=== PATIENT | male | born 1985 | race Caucasian/White ===

== ENCOUNTER 2025-02-18 16:00 | Emergency (ER) | payer OTHER, BC, SELFPAY ==
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
[2025-02-18 16:10] VITALS: BP 120/76; PULSE 56; RESP 14; TEMP 36.5; O2SAT 97
--- OUTSIDE RECORDS SUMMARY | 2025-02-18 16:10 | XMS_ITS | Clinical Summary ---
Author Organization [facility] Address [address] [place] [address] Phone Care Team Providers Care Stevedoring Supervisor Name Role Phone Vaishnavi Hernandez MD Primary Care Provider Allergies Active Allergy Reactions Criticality Noted Date Comments Morphine Itching 07/08/2017 Medications HYDROcodone-acet aminophen (NORCO) 5-325 MG Tablet Take 1 Tab by mouth every 4 hours as needed for Pain. 20 Tab 07/08/2017 Active Social History Tobacco Use Types Packs/Day Years Used Date Smoking Tobacco: Never Smokeless Tobacco: Never Alcohol Use Standard Drinks/Week Comments No 0 (1 standard drink = 0.6 oz pur e alcohol) Sex and Gender Information Value Date Recorded Sex Assigned at Not on file Legal Sex Male 9:05 PM CDT Gender Identity Not on file Sexual Orientation Not on file Last Filed Vital Signs Vital Sign Reading Time Taken Comments Blood Pressure 140/88 07/16/2017 4:19 PM COMMUNITY HEALTH ADVOCATE Pulse 78 07/16/2017 4:19 PM COMMUNITY HE[facility] ADV[facility]ATE Temperature 36.3 C (97.3 F) 07/16/2017 4:19 PM COMMUNITY HEALTH ADV[facility]ATE Respiratory Rate 16 07/16/2017 4:19 PM [facility] HE[facility] Oxygen Saturation 100% 07/16/2017 4:19 PM COMM[facility]ITY HE[facility] AD[facility]ATE Inhaled Oxygen Concentration - - Weight 86.2 kg (190 lb) 07/16/2017 4:19 PM [facility]ITY HE[facility] AD[facility] Height 172.7 cm (5' 8) 07/16/2017 4:19 PM COMMUNITY HEALTH ADV[facility]ATE Body Mass Index 28.89 07/16/2017 4:19 PM [facility] Plan of Treatment Health Maintenance Due Date Last Done Comments Hepatitis C Virus (HCV) Screening 1985 TdaP Immunization 1985 Hepatitis B Immunization (1 of 3 - 19+ 3-dose series) 2004 Human Papillomavirus (HPV) Immunization (1 - 3-dose SCDM series) 2012 SARS-COV-2 Immunization (1 - 2023-25 season) 2024 Influenza Immunization (#1) 2025 Respiratory Syncytial Virus (RSV) Immunization (Adult) (1 - 1-dose 75+ series) 2060 Meningococcal Immunization (ACWY) Aged Out No longer eligible based on patient's age to complete this topic Pneumococcal Immunization Combined Aged Out No longer eligible based on patient's age to complete this topic Rotavirus Immunization Aged Out No lo nger eligible based on patient's age to complete this [place] [address] [address] [place] [address] Member Subscriber Plan / Payer (Ef fective for All Dates) Name:Alexx Villagomez Member ID:[id number] Relation to Subscriber:Self Name:Alexx Villagomez Subscriber ID:[id number] Payer ID:[id number] Group ID:Not on file Type:Not on file Address: [address] [place] [address] [facility] Care Teams Stevedoring Supervisor Relationship Specialty Start Date End Date Vaishnavi Hernandez MD [address] [place] [address] PCP - General Family Medicine 08/23/22
--- OUTSIDE RECORDS SUMMARY | 2025-02-18 16:10 | XMS_ITS | Clinical Summary ---
Author Organization [facility] Address [address] [place] [address] Care Team Providers Care Support Group Manager Name Role Phone Vaishnavi Hernandez MD Primary Care Provider [phone] Chuy Patel DO Unavailable [phone] Allergies Active Allergy Reactions Criticality Noted Date Comments Morphine Rash Low 08/26/2022 Medications metoprolol succinate ER (TOPROL-XL) 50 MG 24 hr tablet Take by mouth daily. Active vitamin D2, ergocalciferol, (DRISDOL) 1.25 mg capsule Take 1 capsule (50,000 Units total) by mouth every 7 days. Active busPIRone (BUSPAR) 15 MG tablet Take 0.5 tablets (7.5 mg total) by mouth 2 (two) times daily. Active LORazepam (ATIVAN) 0.5 MG tablet Take 1 tablet (0.5 mg total) by mouth 2 (two) times daily as needed for Anxiety. Active Active Problems Problem Noted Date Diagnosed Date Chest pain Assessment & Plan (09/14/2022 3:08 PM CDT): The patient's symptoms are atypical and do not likely represent coronary ischemia. The patient does have some mild risk for premature atherosclerotic risk with hypertension, obesity leading to a recent abnormal glucose potential metabolic syndrome, and an abnormal ECG. I had the patient's family history of a father who had reported CAD at age 40 and his personal peace of mind I have suggested calcium scoring as a way to stratify how aggressive to be with his secondary risk. Any score other than 0 would suggest a more aggressive stance and further testing. Patient understands we will contact him by phone with normal test results and see him in follow-up for any score other than 0 to establish a plan of care. Abnormal echocardiogram Abnormal glucose Assessment & Plan (09/14/2022 10:48 AM CDT): 190 at home Encounters Date Type Department Care Team Description 01/03/2025 7:42 AM CDT - 01/03/2025 11:59 PM CDT Hospital Encounter [facility] [address] [address] Vaishnavi Hernandez MD Quarton, Brian L, MD Discharge Disposition: Home or Self Care (Routine Discharge) 01/03/2025 Travel from Last 3 Months Family History Medical History Relation Comments Heart Disease Mother Hypertension Mother Relation Status Comments Mother Social History Tobacco Use Types Packs/Day Years Used Date Smoking Tobacco: Never Alcohol Use Standard Drinks/Week Comments Never 0 (1 standard drink = 0.6 oz pur e alcohol) Sex and Gender Information Value Date Recorded Sex Assigned at Not on file Legal Sex Male 7:40 PM CDT Gender Identity Not on file Sexual Orientation Not on file Last Filed Vital Signs Vital Sign Reading Time Taken Comments Blood Pressure 120/80 09/14/2022 10:07 AM CDT Pulse 56 09/14/2022 10:06 AM CDT Temperature 36.6 C (97.9 F) 08/26/2022 5:10 PM GREEN MATERIAL VALUE ADDED ASSESSOR Respiratory Rate 18 09/14/2022 10:06 AM CDT Oxygen Saturation 99% 08/26/2022 6:30 PM GREEN MATERIAL VALUE ADDED ASSESSOR Inhaled Oxygen Concentration - - Weight 92.1 kg (203 lb) 09/14/2022 10:06 AM CDT Height 170.2 cm (5' 7) 09/14/2022 10:06 AM CDT Body Mass Index 31.79 09/14/2022 10:06 AM CDT Plan of Treatment Health Maintenance Due Date Last Done Comments Annual Physical 1988 Hepatitis C 2003 DTaP, Tdap and Td Vaccines ( 1 - Tdap) 2004 HPV Vaccines (1 - 3-dose SCD M series) 2012 COVID-19 Vaccine (2023-2 5 season) 2024 Hepatitis B Vaccines Completed 10/12/1996, 05/14/1996, 04/13/1996 Meningococcal B Vaccine Aged Out No l onger eligible based on patient's age to complete this topic Meningococcal Vaccine Aged Out No maddi ángel eligible based on patient's age to complete this topic Pneumococcal Vaccine: Pediatrics (0 to 5 Years) and At-Risk Patients (6 to 49 Years) Aged Out No longer eligible b ased on patient's age to complete this topic RSV Immunizations Under 20 Months Aged Out No longer eligible b ased on patient's age to complete this topic Procedures Procedure Name Priority Date/Time Associated Diagnosis Comments STRESS TEST ONLY, EXERCISE Routine 01/03/2025 7:58 AM CDT Chest pain, unspecified type from Last 3 Months Insurance [facility] Care Teams Support Group Manager Relationship Specialty Start Date End Date Vaishnavi Hernandez MD [address] [place] [address] PCP - General FAMILY PRACTICE 04/14/18 Chuy Patel DO [address] [place] [address] Consulting Physician CARDIOVASCULAR DISEASE 09/08/22
--- OUTSIDE RECORDS SUMMARY | 2025-02-18 16:10 | XMS_ITS | Clinical Summary ---
Author Organization [facility] Address [address] [place] [address] Phone Care Team Providers Care Hand Stitcher Name Role Phone Zulema Acosta MD Primary Care Provider Unava ilable Social History Tobacco Use Types Packs/Day Years Used Date Smoking Tobacco: Never Assessed Sex and Gender Information Value Date Recorded Sex Assigned at Not on file Legal Sex Male 5:42 AM COUNTER STACKER Gender Identity Not on file Sexual Orientation Not on file Plan of Treatment Health Maintenance Due Date Last Done Comments HPV VACCINES (1 - Male 3-dose series) 2000 DTAP/TDAP/TD VACCINES (1 - Tdap) 2004 HEPATITIS B VACCINES (1 of 3 - 19+ 3-dose series) 08/2003 INFLUENZA VACCINE (#1) 2025 Insurance BLUE ACCESS/TRUE BLUE PPO Care Teams Hand Stitcher Relationship Specialty Start Date End Date Zulema Acosta MD PCP - General 08/29/08
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
--- OUTSIDE RECORDS SUMMARY | 2025-02-18 16:47 | XMS_ITS | Clinical Summary ---
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
--- OUTSIDE RECORDS SUMMARY | 2025-02-18 16:47 | XMS_ITS | Clinical Summary ---
Author Organization [facility] Address [address] [place] [address] Phone Care Team Providers Care Senior Branch Manager Name Role Phone Vaishnavi Hernandez MD Primary Care Provider [phone] Allergies Active Allergy Reactions Criticality Noted Date [...] Comments Blood Pressure 140/88 07/16/2017 4:19 PM EXHIBIT DESIGNER Pulse 78 07/16/2017 4:19 PM EXHIBIT DESIGNER Temperature 36.3 C (97.3 F) 07/16/2017 4:19 PM EXHIBIT DESIGNER Respiratory Rate 16 07/16/2017 4:19 PM EXHIBIT DESIGNER Oxygen Saturation 100% 07/16/2017 4:19 PM EXHIBIT DESIGNER Inhaled Oxygen Concentration - - Weight 86.2 kg (190 lb) 07/16/2017 4:19 PM EXHIBIT DESIGNER Height 172.7 cm (5' 8) 07/16/2017 4:19 PM EXHIBIT DESIGNER Body Mass Index 28.89 07/16/2017 4:19 PM EXHIBIT DESIGNER Plan of Treatment Health Maintenance Due Date [...] patient's age to complete this topic [place] [address] [address] [place] [address] Member Subscriber Plan / Payer (Ef fective for All Dates) Name:Alexx Villagomez Member ID:[id number] Relation to Subscriber:Self Name:Alexx Villagomez Subscriber ID:[id number] Payer ID:[id number] Group ID:Not on file Type:Not on file Address: [address] [place] [address] [facility] Care Teams Senior Branch Manager Relationship Specialty Start Date End Date Vaishnavi Hernandez MD [address] [place] [address] PCP - General Family Medicine 08/23/22
--- OUTSIDE RECORDS SUMMARY | 2025-02-18 16:47 | XMS_ITS | Clinical Summary ---
Author Organization [facility] Address [address] [place] [address] Care Team Providers Care Uke Operator Name Role Phone Vaihsnavi Hernandez MD Primary Care Provider [phone] Chuy Patel DO Unavailable [phone] Allergies Active Allergy Reactions Criticality Noted Date [...] - 01/03/2025 11:59 PM CDT Hospital Encounter [facility] [address] [place] [address] Vaishnavi Hernandez MD Quarton, Brian L, MD [...] 36.6 C (97.9 F) 08/26/2022 5:10 PM SOLUTION STRATEGIST Respiratory Rate 18 09/14/2022 10:06 AM CDT Oxygen Saturation 99% 08/26/2022 6:30 PM SOLUTION STRATEGIST Inhaled Oxygen Concentration - - Weight 92.1 [...] unspecified type from Last 3 Months Insurance [facility] Care Teams Uke Operator Relationship Specialty Start Date End Date Vaishnavi Hernandez MD [address] [place] [address] PCP - General FAMILY PRACTICE 04/14/18 Chuy Patel DO [address] [place] [address] Consulting Physician CARDIOVASCULAR DISEASE 09/08/22
--- NOTE | 2025-02-18 17:12 | PC.NURSE ---
Pt to CT scanner with radiology transport.
[2025-02-18 18:13] VITALS: BP 147/76; PULSE 62; RESP 16; O2SAT 98
[2025-02-18 18:36] VITALS: BP 135/89; PULSE 61; RESP 16; TEMP 36.7; O2SAT 99
== END 2025-02-18 18:50 | disposition home or self-care (01) ==
PROVIDERS: Emergency Provider Emergency Medicine; PCP Family Medicine
DX: S09.92XA Unspecified injury of nose, initial encounter (principal); M54.2 Cervicalgia; V49.49XA Driver injured in collision with other motor vehicles in traffic accident, initial encounter
CPT/HCPCS: 70450; 70486; 71046; 71100; 72125; 99284